=== PATIENT | male | born 1940 | race Caucasian/White ===

== ENCOUNTER 2023-10-04 08:30 | Day surgery (SDC) | payer BC, MEDICARE ==
[2023-10-03 09:56] LABS: BASOPHILS # (AUTO) 0.1 X10'3 (0-0.2); BASOPHILS % (AUTO) 1.1 % (0-1); EOSINOPHILS # (AUTO) 0.1 X10'3 (0-0.9); EOSINOPHILS % (AUTO) 1.1 % (0-6); LYMPHOCYTES # (AUTO) 0.7 X10'3 (1.1-4.8); LYMPHOCYTES % (AUTO) 13.7 % (21-51); MEAN CORPUSCULAR HEMOGLOBIN 31.8 PG (27.0-31.0); MEAN CORPUSCULAR HGB CONC 33.5 g/dL (33.0-36.5); MONOCYTES # (AUTO) 0.6 X10'3 (0-0.9); MONOCYTES % (AUTO) 11.2 % (2-12); NEUTROPHILS # (AUTO) 3.9 X10'3 (1.8-7.7); NEUTROPHILS % (AUTO) 72.9 % (42-75); PRE OP HEMATOCRIT 43.2 % (42.0-52.0); PRE OP HEMOGLOBIN 14.5 g/dL (14.0-17.9); PRE OP PLATELET COUNT 257 X10'3 (140-440); PRE OP WHITE BLOOD COUNT 5.4 10'3 (4.8-10.8); RED BLOOD COUNT 4.55 X10'6 (4.70-6.10); RED CELL DISTRIBUTION WIDTH 13.5 % (11.5-14.5)
[2023-10-03 10:58] LABS: ALBUMIN 4.2 G/DL (3.4-5.0); ALBUMIN/GLOBULIN RATIO 1.2 (1.1-1.5); ALKALINE PHOSPHATASE 136 IU/L (46-116); BLOOD UREA NITROGEN 37 MG/DL (7-18); BUN/CREATININE RATIO 30.6 (10.0-20.0); CALCIUM 8.5 MG/DL (8.5-10.1); CHLORIDE 104 MMOL/L (99-107); CREATININE 1.21 MG/DL (0.60-1.10); PRE OP ALT 22 U/L (30-65); PRE OP ANION GAP 10 (8-16); PRE OP AST 15 U/L (10-37); PRE OP BILIRUB, TOTAL 0.6 MG/DL (0.0-1.0); PRE OP GLUCOSE 98 MG/DL (70-104); PRE OP POTASSIUM 3.6 MMOL/L (3.4-5.1); PRE OP SODIUM 140 MMOL/L (135-145); TOTAL CARBON DIOXIDE 25.7 MMOL/L (24-32); TOTAL PROTEIN 7.8 G/DL (6.4-8.2); eGFR 57 ML/MIN
[~2023-10-04] VITALS: Ht 177.8 cm; Wt 75.1 kg
[2023-10-04] VITALS (14 sets, daily range): BP systolic 116–147; BP diastolic 62–83; PULSE 62–80; RESP 11–16; TEMP 97.8; O2SAT 96–100
[2023-10-04] MEDS: cefazolin 2gm/D5W 100mL 100 ML IV ONE (05:30)
[2023-10-04] MEDS: famotidine 20mg tablet PO ONE (05:30)
[2023-10-04] MEDS: vancomycin 1,500 MG in NS 300ml IV soln IV ONE (05:30)
[~2023-10-04 08:30] MED LIST: AMLO5TAB16 PO; HYDR12.55 PO; LISI20TA28 PO; fentaNYL/PF 50MCG/1 ML 2ML syringe ONE; midazolam 1 mg/ML 2ml injection ONE; propofol inj 20 ML IV ONE; rocuronium 10mg/ml inj IV ONE
[2023-10-04] MEDS ORDERED: sevoflurane 250ml liquid IH ONE (08:32)
[2023-10-04] MEDS: BUPIVAcaine/PF 2.5mg/ml (0.25%) 10ml vial ONE (08:54)
[2023-10-04] MEDS: LIDOcaine 1% 30ml preserv. free vial ONE (08:54)
[2023-10-04] MEDS ORDERED: morphine 2 MG/ML inj. syringe IV PRN (09:20)
[2023-10-04] MEDS ORDERED: morphine 4 MG/ML inj SYRINge IV PRN (09:20)
[2023-10-04] MEDS ORDERED: meperidine/PF 25mg/ml syringe IV PRN ×2 (09:20)
[2023-10-04] MEDS ORDERED: ondansetron/PF 4mg/2ml inj IV PRN (09:20)
[2023-10-04] MEDS ORDERED: ringers solution, lacted 1,000 ML IV SCH (09:20)
[2023-10-04] MEDS ORDERED: proCHLORperazine 10 MG/2 ml inj IV PRN (09:20)
[2023-10-04] MEDS ORDERED: ondansetron/PF 4mg/2ml inj ONE (09:39)
[2023-10-04] MEDS ORDERED: dexamethasone sod phosphate 4mg/ml inj. ONE (09:39)
[2023-10-04] MEDS ORDERED: neostigmine methylsulfate 1 MG/ML 10ml vial ONE (09:47)
[2023-10-04] MEDS ORDERED: glycopyrrolate 0.2mg/ml inj ONE (09:48)
[2023-10-04] MEDS ORDERED: acetaminophen 1,000mg/100ml IV 100 ML IV ONE (09:48)
[2023-10-04] MEDS: meperidine/PF 25mg/ml syringe IV PRN (10:48)
[2023-10-04] MEDS: HYDROcodone/acetaminophen 5mg/325mg tablet PO PRN (12:40)
== END 2023-10-04 13:15 | disposition home or self-care (01) ==
LOC: PAS 08:30
PROVIDERS: ATTEND Surgery
DX: K40.90 Unilateral inguinal hernia, without obstruction or gangrene, not specified as recurrent (principal); K42.9 Umbilical hernia without obstruction or gangrene; I10 Essential (primary) hypertension; I25.2 Old myocardial infarction; I20.9 Angina pectoris, unspecified; Z85.46 Personal history of malignant neoplasm of prostate; Z79.899 Other long term (current) drug therapy; Z90.79 Acquired absence of other genital organ(s); Z98.890 Other specified postprocedural states; Z82.49 Family history of ischemic heart disease and other diseases of the circulatory system
CPT/HCPCS: 36415; 49591; 49650; 80053; 85025; 93005; C1781; J0131; J0690; J1100; J2175; J2250; J2405; J2704; J2710; J3010; J3370; J3490; J7030; J7120; S2900; Z7506; Z7508; Z7512; A4215; A4618